=== PATIENT | female | born 1955 | race Caucasian/White ===

== ENCOUNTER → 2016-12-10 | Outpatient (CLI) | payer OTHER ==
[~2016-12-10] MED LIST: BENADRYL25 MG PO; CLARITIN10 M3 PO; COLACE100 MG PO; CRANBERRY PLUS1 EAC1 PO; FENOFIBRATE134 MG PO; FEOSOL325 MG PO; KLOR-CON M2020 MEQ PO; LASIX20 M1 PO; LEVEMIR100 UNIT/1 SUB-Q; MAGOX 400400 MG PO; MULTI VITAMIN1 EACH PO; NORCO 5-325 MG1 TAB PO; NOVOLOG100 UNIT/1 SUB-Q; OSCAL + D500 MG PO; PREVACID15 MG PO; SILVADENE20 GM TOP; ULTRAM50 MG PO; VITAMIN E TOP; VITAMIN E400 UNI4 PO; XIGDUO XR 10 M1 EACH PO; ZOCOR10 M1 PO
== END | disposition disaster alternative care site (69) ==
LOC: GRAD 15:56
DX: R10.9 Unspecified abdominal pain (principal); R19.04 Left lower quadrant abdominal swelling, mass and lump; Z85.038 Personal history of other malignant neoplasm of large intestine; Z98.890 Other specified postprocedural states
CPT/HCPCS: Q9967